=== PATIENT | male | born 1995 | race Caucasian/White ===

== ENCOUNTER 2017-02-20 20:04 | Emergency (ER) | payer MEDICAID, OTHER ==
[2017-02-20 21:41] LABS: ABSOLUTE NEUTROPHIL COUNT 6.5 K/mm3 (1.8-7.7); BASO # 0.1 K/mm3 (0.0-0.2); BASO % 0.8 % (0.2-1.0); EOS # 0.1 (0.0-0.5); EOS % 0.5 % (0.9-2.9); HEMATOCRIT 39.1 % (32.0-52.0); HEMOGLOBIN 13.4 gm/l (14.0-18.0); IMM NEUT% 0.2 % (0-1); LYMPH # 3.5 (1.0-4.8); MEAN CELL VOLUME 87.5 fl (80.0-94.0); MEAN CORPUSCULAR HGB CONC 34.3 g/dl (33.0-37.0); MEAN PLATELET VOLUME 9.8 fl (7.4-10.4); MONO # 1.1 (0.0-0.8); NEUT % 57.5 % (43-75); PLATELET COUNT 297 K/mm3 (130-400); RED CELL DISTRIBUTION WIDTH 12.3 % (11.5-14.5)
[2017-02-20 21:55] LABS: ALB/GLOB RATIO 1.6 (>1.0); ALBUMIN 4.5 gm/dL (3.5-5.7); ALT/SGPT 26 U/L (7-52); BLOOD UREA NITROGEN 19 mg/dL (7-25); BUN/CREATININE RATIO 21 (6-20); CALCIUM 9.5 mg/dL (8.6-10.3); GLOMERULAR FILTRATION RATE 104 mL/min (60-116)
[2017-02-20 21:57] LABS: ACETAMINOPHEN < 10 ug/ml; SALICYLATE < 4 mg/dl (0-30)
[2017-02-20 23:16] LABS: URINE BILIRUBIN NEGATIVE (NEGATIVE); URINE BLOOD NEGATIVE (NEGATIVE); URINE GLUCOSE (UA) NEGATIVE (NEGATIVE); URINE LEUKOCYTE ESTERASE NEGATIVE (NEGATIVE); URINE NITRITE NEGATIVE (NEGATIVE); URINE PROTEIN NEGATIVE (NEGATIVE); URINE UROBILINOGEN NORMAL (0-1 mg/dl)
[2017-02-20 23:17] LABS: URINE APPEARANCE CLEAR; URINE COLOR YELLOW
[2017-02-20 23:26] LABS: AMPHETAMINES/METHAMPHETAMINES NEGATIVE (NEGATIVE); COCAINE NEGATIVE (NEGATIVE); MARIJUANA POSITIVE (NEGATIVE); METHADONE NEGATIVE (NEGATIVE); OPIATES NEGATIVE (NEGATIVE); TRICYCLIC ANTIDEPRESSANTS NEGATIVE (NEGATIVE)
== END 2017-02-20 23:58 | disposition home or self-care (01) ==
LOC: ED 20:04
DX: R55 Syncope and collapse (principal); F64.0 Transsexualism; F17.210 Nicotine dependence, cigarettes, uncomplicated